=== PATIENT | female | born 1980 | race Caucasian/White ===

== ENCOUNTER 2016-07-23 05:39 | Day surgery (SDC) | payer OTHER ==
[~2016-07-23 05:39] MED LIST: NO HOME MEDS
== END 2016-07-23 11:55 ==
LOC: SHSB 05:39 → ORE 07:34 → PACU 09:45 → SHSB 10:10
PROC: 0QBM0ZZ Excision of Left Tarsal, Open Approach (ICD-10-PCS; principal; 2016-07-23)
PROC: 0LQP0ZZ Repair Left Lower Leg Tendon, Open Approach (ICD-10-PCS; 2016-07-23)
DX: M92.62 Juvenile osteochondrosis of tarsus, left ankle (principal); M77.32 Calcaneal spur, left foot; E66.9 Obesity, unspecified; M76.62 Achilles tendinitis, left leg; Z68.39 Body mass index [BMI] 39.0-39.9, adult; Z91.048 Other nonmedicinal substance allergy status; Z98.890 Other specified postprocedural states
CPT/HCPCS: J0690; J2250; J3010